=== PATIENT | female | born 1995 | race Caucasian/White ===

== ENCOUNTER 2017-12-13 17:49 | Inpatient (IN) | payer MEDICAID ==
[~2017-12-13] VITALS: Ht 5200 cm; Wt 100.0 kg
[~2017-12-13 17:49] MED LIST: OXYC-145 PO; PRED50TA PO; PREG50CA PO
[2017-12-13] MEDS ORDERED: normal saline 1000ML IV soln IVB ONE (17:55)
[2017-12-13 18:18] LABS: BASOPHILS # (AUTO) 0.1 X10'3 (0-0.2); BASOPHILS % (AUTO) 0.4 % (0-1); EOSINOPHILS # (AUTO) 0.2 X10'3 (0-0.9); EOSINOPHILS % (AUTO) 1.5 % (0-6); HEMATOCRIT 39.8 % (35.0-45.0); HEMOGLOBIN 12.9 g/dl (12.0-16.0); LYMPHOCYTES # (AUTO) 1.9 X10'3 (1.1-4.8); LYMPHOCYTES % (AUTO) 12.9 % (21-51); MEAN CORPUSCULAR HEMOGLOBIN 23.3 PG (27.0-31.0); MEAN CORPUSCULAR HGB CONC 32.2 % (33.0-36.5); MEAN CORPUSCULAR VOLUME 72.3 FL (78-98); MEAN PLATELET VOLUME 8.4 FL (7.4-10.4); MONOCYTES # (AUTO) 1.4 X10'3 (0-0.9); MONOCYTES % (AUTO) 9.7 % (2-12); NEUTROPHILS # (AUTO) 10.9 X10'3 (1.8-7.7); NEUTROPHILS % (AUTO) 75.5 % (42-75); PLATELET COUNT 318 X10'3 (140-440); RED BLOOD COUNT 5.51 X10'6 (4.20-5.60); RED CELL DISTRIBUTION WIDTH 12.1 % (11.5-14.5); WHITE BLOOD COUNT 14.5 X10'3 (4.5-11.0)
[2017-12-13 18:22] LABS: INR 1.1 INR; PARTIAL THROMBOPLASTIN TIME 23 SECONDS (22-32); PROTHROMBIN TIME 11.5 SECONDS (9.0-12.0)
[2017-12-13 18:35] LABS: ACETAMINOPHEN < 2.0 UG/ML (10-30); ALANINE AMINOTRANSFERASE 31 U/L (12-78); ALBUMIN 3.8 G/DL (3.4-5.0); ALKALINE PHOSPHATASE 93 IU/L (20-180); ANION GAP 12 (8-16); ASPARTATE AMINO TRANSFERASE 16 U/L (10-37); BILIRUBIN,TOTAL 0.3 MG/DL (0.1-1.0); BLOOD UREA NITROGEN 12 MG/DL (7-18); BUN/CREATININE RATIO 11.9 (6.6-38.0); CALCIUM 8.8 MG/DL (8.5-10.1); CHLORIDE 107 MMOL/L (99-107); CREATININE 1.01 MG/DL (0.40-0.90); ETHANOL < 0.010 GM/DL (0.0-0.010); GLUCOSE 95 MG/DL (70-104); POTASSIUM 3.8 MMOL/L (3.5-5.1); SODIUM 143 MMOL/L (135-145); TOTAL CARBON DIOXIDE 23.6 MMOL/L (24-32); TOTAL PROTEIN 7.5 G/DL (6.4-8.2); eGFR 70 ML/MIN
[2017-12-13 19:24] LABS: URINE HCG NEGATIVE (NEG)
[2017-12-13 19:34] LABS: URINE AMPHETAMINE SCREEN NEGATIVE (Neg); URINE BARBITUATE SCREEN NEGATIVE (Neg); URINE BENZODIAZEPINES SCREEN POSITIVE (Neg); URINE CANNABINOID SCREEN NEGATIVE (Neg); URINE COCAINE SCREEN NEGATIVE (Neg); URINE METHADONE SCREEN NEGATIVE (Neg); URINE OPIATE SCREEN NEGATIVE (Neg); URINE PHENCYCLIDINE SCREEN NEGATIVE (Neg)
[2017-12-13 19:36] LABS: CLARITY,URINE Clear (Clear); COLOR,URINE Yellow (Yellow); GLUCOSE, URINE Negative (Neg); KETONES,URINE Negative (Neg); LEUKOCYTE ESTERASE ,URINE Negative (Neg); NITRITES, URINE Negative (Neg); OCCULT BLOOD,URINE Negative (Neg); PH,URINE 5.5 (4.8-8.0); PROTEIN,URINE 30 mg/dl (Neg); UROBILINOGEN,URINE 0.2 E.U/dL (0.2-1.0)
[2017-12-13 19:39] LABS: UA COLLECTION TYPE FOLEY CATH
[2017-12-13] MEDS ORDERED: BACL20TA11 (20:08)
[2017-12-13] MEDS ORDERED: HYDR-3686 PO ×2 (20:08)
[2017-12-13] MEDS ORDERED: CLON-528 PO (20:08)
[2017-12-13] MEDS ORDERED: PHEN-887 PO (20:08)
[2017-12-13] MEDS ORDERED: LURA20TA PO (20:08)
[2017-12-13] MEDS ORDERED: ONDA8TAB9 PO (20:08)
[2017-12-13] MEDS ORDERED: QUET25TA PO (20:08)
[2017-12-13] MEDS ORDERED: GABA600T2 PO (20:08)
[2017-12-13] MEDS ORDERED: DULO-31 PO (20:08)
[2017-12-13] MEDS ORDERED: NORT50CA5 PO (20:08)
[2017-12-13] MEDS ORDERED: NORT25CA PO (20:08)
[2017-12-13 20:17] LABS: AMORPHOUS URATES 1+; BACTERIA,URINE FEW /HPF (Neg); MUCUS STRANDS MANY /LPF (Neg); RBC,URINE NONE SEEN /HPF (0-2); SQUAMOUS EPITHELIAL CELL,UR FEW /LPF (FEW); WBC,URINE 0-4 /HPF (0-4)
[2017-12-13 20:18] LABS: CAL OXALATE CRYSTALS 1+ /HPF (NEGATIVE)
[2017-12-13] MEDS ORDERED: temazepam 15mg capsule PO PRN (21:00)
[2017-12-13] MEDS ORDERED: HYDROmorphone inj. 0.5 MG/0.5 ML DISP.SYRIN IV PRN ×2 (22:05)
[2017-12-13] MEDS ORDERED: acetaminophen 650mg rectal suppository RC PRN (22:05)
[2017-12-13] MEDS ORDERED: diphenhydrAMINE 25mg capsule PO PRN (22:05)
[2017-12-13] MEDS ORDERED: glucagon, human recombinant 1mg kit SUBCUT PRN (22:05)
[2017-12-13] MEDS ORDERED: morphine 2 MG/ML inj. syringe IV PRN ×2 (22:05)
[2017-12-13] MEDS ORDERED: ondansetron/PF 4mg/2ml inj IV PRN (22:05)
[2017-12-13] MEDS ORDERED: diphenhydrAMINE 50 mg/ml inj IV PRN (22:05)
[2017-12-13] MEDS ORDERED: metoclopramide 5 mg/ml inj IV PRN (22:05)
[2017-12-13] MEDS ORDERED: bisacodyl 10mg suppository rectal RC PRN (22:05)
[2017-12-13] MEDS ORDERED: magnesium hydroxide 30ml (MOM) UD suspension PO PRN (22:05)
[2017-12-13] MEDS ORDERED: insulin Lispro (HumaLOG) vial - multi-dose SQ SCH (22:05)
[2017-12-13] MEDS ORDERED: HYDROcodone/acetaminophen 10/325mg tab PO PRN (22:05)
[2017-12-13] MEDS ORDERED: dextrose ORAL solution 15 GM/59 ML bottle PO PRN ×2 (22:05)
[2017-12-13] MEDS ORDERED: HYDROcodone/acetaminophen 5mg/325mg tablet PO PRN (22:05)
[2017-12-13] MEDS ORDERED: dextrose 50%-water 50ml dispensing syringe IV PRN ×2 (22:05)
[2017-12-13] MEDS ORDERED: acetaminophen 325mg tablet PO PRN (22:05)
[2017-12-13] MEDS ORDERED: MESSAGE TO PHARMACY PO ONE (22:05)
[2017-12-13] MEDS ORDERED: mag hydrox/Alum hydrox/simeth 30ml oral suspension PO PRN (22:05)
[2017-12-13 22:35] LABS: HEMOGLOBIN A1C 5.5 % (4.5-6.2)
[2017-12-13 22:44] LABS: MAGNESIUM 1.9 MG/DL (1.5-2.4); PHOSPHORUS 4.8 MG/DL (2.3-4.5)
[2017-12-13] MEDS: normal saline 1000ml 1,000 ML IV SCH (22:56)
[2017-12-13] MEDS: pantoprazole 40 MG vial IV SCH (22:56)
[2017-12-14] MEDS: phenazopyridine 100mg tablet PO SCH ×4 (03:15→19:30)
[2017-12-14 07:53] LABS: ALANINE AMINOTRANSFERASE 32 U/L (12-78); ALBUMIN 3.4 G/DL (3.4-5.0); ALBUMIN/GLOBULIN RATIO 0.9 (1.1-1.5); ALKALINE PHOSPHATASE 85 IU/L (20-180); ANION GAP 11 (8-16); ASPARTATE AMINO TRANSFERASE 32 U/L (10-37); BILIRUBIN,TOTAL 0.4 MG/DL (0.1-1.0); BLOOD UREA NITROGEN 11 MG/DL (7-18); BUN/CREATININE RATIO 12.9 (6.6-38.0); CALCIUM 8.9 MG/DL (8.5-10.1); CHLORIDE 108 MMOL/L (99-107); CHOL/HDL RATIO 4.8 (0.00-4.99); CHOLESTEROL 229 MG/DL (0-200); CREATININE 0.85 MG/DL (0.40-0.90); GLUCOSE 90 MG/DL (70-104); HDL CHOLESTEROL 48 MG/DL (35-60); LDL CHOLESTEROL 163 MG/DL (50-100); POTASSIUM 4.2 MMOL/L (3.5-5.1); SODIUM 140 MMOL/L (135-145); TOTAL CARBON DIOXIDE 21.1 MMOL/L (24-32); TRIGLYCERIDES 65 MG/DL (20-135); eGFR 85 ML/MIN
[2017-12-14] MEDS: pantoprazole 40 MG vial IV SCH (07:53)
[2017-12-14] MEDS ORDERED: docusate sod 100mg capsule PO SCH (08:00)
[2017-12-14] MEDS ORDERED: heparin, porcine 5000 units/ml vial SQ SCH (08:00)
[2017-12-14 08:36] LABS: BASOPHILS % (AUTO) 0.4 % (0-1); EOSINOPHILS # (AUTO) 0.3 X10'3 (0-0.9); EOSINOPHILS % (AUTO) 2.2 % (0-6); HEMATOCRIT 36.9 % (35.0-45.0); HEMOGLOBIN 12.3 g/dl (12.0-16.0); LYMPHOCYTES # (AUTO) 1.8 X10'3 (1.1-4.8); LYMPHOCYTES % (AUTO) 16.3 % (21-51); MEAN CORPUSCULAR HEMOGLOBIN 24.1 PG (27.0-31.0); MEAN CORPUSCULAR HGB CONC 33.4 % (33.0-36.5); MEAN CORPUSCULAR VOLUME 72.3 FL (78-98); MONOCYTES # (AUTO) 1.2 X10'3 (0-0.9); MONOCYTES % (AUTO) 10.2 % (2-12); NEUTROPHILS % (AUTO) 70.9 % (42-75); PLATELET COUNT 296 X10'3 (140-440); RED BLOOD COUNT 5.11 X10'6 (4.20-5.60); RED CELL DISTRIBUTION WIDTH 13.4 % (11.5-14.5); WHITE BLOOD COUNT 11.3 X10'3 (4.5-11.0)
[2017-12-14] MEDS: normal saline 1000ml 1,000 ML IV SCH (08:39)
[2017-12-14] MEDS ORDERED: LORazepam 2 mg/ml vial IM ONE (15:25)
[2017-12-14] MEDS ORDERED: diphenhydrAMINE 50 mg/ml inj IM ONE (15:25)
[2017-12-14] MEDS ORDERED: haloperidol lactate 5mg/ml inj IM ONE (15:25)
[2017-12-14] MEDS ORDERED: GABA600T2 PO ×3 (16:08)
[2017-12-14] MEDS ORDERED: QUET25TA PO ×2 (16:24)
[2017-12-14] MEDS ORDERED: SERT25TA PO (16:24)
[2017-12-14] MEDS ORDERED: OXYC5CAP19 PO (16:24)
[2017-12-14] MEDS ORDERED: HYDR-3686 PO (16:24)
[2017-12-14] MEDS ORDERED: LORA-512 PO (16:24)
[2017-12-14] MEDS ORDERED: magnesium hydroxide 30ml (MOM) UD suspension PO ONE (19:10)
[2017-12-14] MEDS: nortriptyline 25mg capsule PO SCH (19:32)
[2017-12-14] MEDS: duloxetine 30mg CAPSULE.DR PO SCH (19:32)
[2017-12-14] MEDS: oxyCODONE IR 5mg (immed. release) tablet PO PRN (19:34)
[2017-12-14] MEDS: lurasidone 20mg tablet PO SCH (21:35)
[2017-12-14] MEDS: QUEtiapine 25mg tablet PO SCH (21:36)
[2017-12-14] MEDS: gabapentin 300mg capsule PO SCH (21:36)
[2017-12-14] MEDS: hydrOXYzine 25 MG tablet PO PRN (22:06)
[2017-12-14] MEDS: ondansetron 4mg rapidly disintigrating tab PO PRN (22:47)
[2017-12-15] MEDS: phenazopyridine 100mg tablet PO SCH ×4 (01:17→23:42)
[2017-12-15] MEDS: oxyCODONE IR 5mg (immed. release) tablet PO PRN ×3 (01:18→20:45)
[2017-12-15] MEDS ORDERED: ketorolac tromethamine 15mg/ml inj. IM ONE (03:40)
[2017-12-15] MEDS ORDERED: ketorolac trometh inj. 60 MG/2 ML VIAL IM ONE (04:05)
[2017-12-15] MEDS ORDERED: pantoprazole 40mg Tablet.DR PO SCH (07:30)
[2017-12-15 07:44] LABS: ACETAMINOPHEN < 2.0 UG/ML (10-30)
[2017-12-15] MEDS ORDERED: gabapentin 300mg capsule PO SCH ×2 (08:00→12:30)
[2017-12-15] MEDS ORDERED: loratadine 10mg tablet PO SCH (08:00)
[2017-12-15] MEDS ORDERED: sertraline 25mg tablet PO SCH (08:00)
[2017-12-15] MEDS: QUEtiapine 25mg tablet PO SCH ×3 (08:14→20:44)
[2017-12-15] MEDS: duloxetine 30mg CAPSULE.DR PO SCH ×2 (08:14→20:44)
[2017-12-15] MEDS: clonazePAM 0.5mg tablet PO PRN ×2 (11:17→16:29)
[2017-12-15] MEDS: hydrOXYzine 25 MG tablet PO PRN ×2 (16:29→20:44)
[2017-12-15] MEDS ORDERED: nortriptyline 25mg capsule PO SCH (17:00)
[2017-12-15] MEDS: nortriptyline 25mg capsule PO SCH (17:51)
[2017-12-15 20:42] LABS: BASOPHILS % (AUTO) 0.5 % (0-1); EOSINOPHILS # (AUTO) 0.3 X10'3 (0-0.9); EOSINOPHILS % (AUTO) 3.5 % (0-6); HEMATOCRIT 34.9 % (35.0-45.0); HEMOGLOBIN 11.7 g/dl (12.0-16.0); LYMPHOCYTES # (AUTO) 2.5 X10'3 (1.1-4.8); LYMPHOCYTES % (AUTO) 26.2 % (21-51); MEAN CORPUSCULAR HEMOGLOBIN 23.9 PG (27.0-31.0); MEAN CORPUSCULAR HGB CONC 33.6 % (33.0-36.5); MEAN PLATELET VOLUME 7.7 FL (7.4-10.4); MONOCYTES # (AUTO) 1.4 X10'3 (0-0.9); MONOCYTES % (AUTO) 14.4 % (2-12); NEUTROPHILS # (AUTO) 5.3 X10'3 (1.8-7.7); NEUTROPHILS % (AUTO) 55.4 % (42-75); PLATELET COUNT 292 X10'3 (140-440); RED BLOOD COUNT 4.91 X10'6 (4.20-5.60); RED CELL DISTRIBUTION WIDTH 13.3 % (11.5-14.5); WHITE BLOOD COUNT 9.5 X10'3 (4.5-11.0)
[2017-12-15] MEDS: gabapentin 300mg capsule PO SCH (20:43)
[2017-12-15] MEDS: lurasidone 20mg tablet PO SCH (20:44)
[2017-12-15] MEDS: ondansetron 4mg rapidly disintigrating tab PO PRN (20:48)
[2017-12-16] MEDS: clonazePAM 0.5mg tablet PO PRN (03:14)
[2017-12-16] MEDS: oxyCODONE IR 5mg (immed. release) tablet PO PRN (03:15)
[2017-12-16] MEDS ORDERED: LORazepam 1 MG tablet PO ONE (06:10)
[2017-12-16 06:54] VITALS: BP 127/73
== END 2017-12-16 06:25 | DRG 812 ==
LOC: ER 17:50 → ED HOLD 22:03
PROVIDERS: ADMIT Family Medicine; ATTEND Family Medicine
DX: T43.012A Poisoning by tricyclic antidepressants, intentional self-harm, initial encounter (principal); Z68.41 Body mass index [BMI] 40.0-44.9, adult; I10 Essential (primary) hypertension; N30.10 Interstitial cystitis (chronic) without hematuria; T40.2X2A Poisoning by other opioids, intentional self-harm, initial encounter; T42.8X2A Poisoning by antiparkinsonism drugs and other central muscle-tone depressants, intentional self-harm, initial encounter; F32.9 Major depressive disorder, single episode, unspecified; E66.01 Morbid (severe) obesity due to excess calories; K21.9 Gastro-esophageal reflux disease without esophagitis; M79.7 Fibromyalgia; G89.4 Chronic pain syndrome; E11.9 Type 2 diabetes mellitus without complications; Z88.5 Allergy status to narcotic agent; Z79.52 Long term (current) use of systemic steroids; Z79.899 Other long term (current) drug therapy; Y92.091 Bathroom in other non-institutional residence as the place of occurrence of the external cause
CPT/HCPCS: 36415; 71045; 74176; 80053; 80061; 80305; 80320; 80329; 81001; 81025; 82948; 83036; 83735; 83880; 84100; 84443; 85025; 85610; 85730; 93005; 96360; 99291; C1758; C9113; J1644; J1885; J7030; Q0177

== ENCOUNTER 2019-03-03 21:40 | Emergency (ER) | payer OTHER, MEDICAID ==
[~2019-03-03] VITALS: Ht 165.1 cm; Wt 103.0 kg
[~2019-03-03 21:40] MED LIST changes: +CLON-528 PO; +DULO-31 PO; +GABA600T13 PO; +HYDR-3686 PO; +LORA-512 PO; +LURA20TA PO; +NORT25CA PO; +NORT50CA5 PO; +ONDA8TAB9 PO; -OXYC-145 PO; +OXYC5CAP19 PO; +PHEN-887 PO; -PRED50TA PO; -PREG50CA PO; +QUET25TA PO; +SERT25TA PO
[2019-03-03 21:57] VITALS: BP 150/81
[2019-03-03] MEDS ORDERED: proMETHazine 25mg tablet PO ONE (22:15)
[2019-03-03] MEDS ORDERED: ORPH100T2 PO (22:20)
[2019-03-03] MEDS ORDERED: OXYC-148 PO (22:20)
[2019-03-03] MEDS ORDERED: PHE12.5T PO (22:20)
== END 2019-03-03 22:35 | disposition home or self-care (01) ==
LOC: ER 21:41
DX: S13.4XXA Sprain of ligaments of cervical spine, initial encounter (principal); S29.019A Strain of muscle and tendon of unspecified wall of thorax, initial encounter; K21.9 Gastro-esophageal reflux disease without esophagitis; E11.9 Type 2 diabetes mellitus without complications; Z98.890 Other specified postprocedural states; Z88.5 Allergy status to narcotic agent; Z88.1 Allergy status to other antibiotic agents; Z88.8 Allergy status to other drugs, medicaments and biological substances; Z79.899 Other long term (current) drug therapy; V89.2XXA Person injured in unspecified motor-vehicle accident, traffic, initial encounter; Y93.89 Activity, other specified; Y92.410 Unspecified street and highway as the place of occurrence of the external cause; Y99.8 Other external cause status
CPT/HCPCS: 99283; Q0169

== ENCOUNTER 2019-03-04 21:20 | Emergency (ER) | payer OTHER, MEDICAID ==
[~2019-03-04] VITALS: Ht 165.1 cm; Wt 113.6 kg
[~2019-03-04 21:20] MED LIST changes: +ORPH100T2 PO; +OXYC-148 PO; +PHE12.5T PO
[2019-03-05] MEDS ORDERED: acetaminophen 325mg tablet PO ONE (00:05)
[2019-03-05] MEDS ORDERED: ondansetron 4mg rapidly disintigrating tab PO ONE (00:05)
[2019-03-05 01:37] VITALS: BP 144/82
== END 2019-03-05 01:40 | disposition home or self-care (01) ==
LOC: ER 21:21
DX: S13.4XXA Sprain of ligaments of cervical spine, initial encounter (principal); K21.9 Gastro-esophageal reflux disease without esophagitis; E11.9 Type 2 diabetes mellitus without complications; Z98.890 Other specified postprocedural states; Z88.5 Allergy status to narcotic agent; Z88.8 Allergy status to other drugs, medicaments and biological substances; Z88.1 Allergy status to other antibiotic agents; Z79.899 Other long term (current) drug therapy; V53.6XXA Passenger in pick-up truck or van injured in collision with car, pick-up truck or van in traffic accident, initial encounter; Y93.89 Activity, other specified; Y92.89 Other specified places as the place of occurrence of the external cause; Y99.8 Other external cause status
CPT/HCPCS: 70450; 99284

== ENCOUNTER 2022-02-18 22:17 | Emergency (ER) | payer OTHER, MEDICAID ==
[~2022-02-18] VITALS: Ht 167.6 cm; Wt 118.2 kg
[~2022-02-18 22:17] MED LIST changes: -PHE12.5T PO; +PROM12.512 PO
[2022-02-18 22:34] VITALS: BP 128/82
[2022-02-18 23:07] LABS: URINE HCG NEGATIVE (NEG)
[2022-02-18 23:08] LABS: CLARITY,URINE CLEAR (Clear); COLOR,URINE YELLOW (Yellow); GLUCOSE, URINE NEGATIVE (Neg); KETONES,URINE NEGATIVE (Neg); LEUKOCYTE ESTERASE ,URINE NEGATIVE (Neg); NITRITES, URINE NEGATIVE (Neg); OCCULT BLOOD,URINE NEGATIVE (Neg); PROTEIN,URINE TRACE mg/dl (Neg); UROBILINOGEN,URINE 0.2 E.U/dL (0.2-1.0)
[2022-02-18 23:13] LABS: UA COLLECTION TYPE CLN CATCH MIDSTREAM
[2022-02-18 23:16] LABS: BACTERIA,URINE NONE SEEN /HPF (Neg); MUCUS STRANDS NONE SEEN /LPF (Neg); RBC,URINE NONE SEEN /HPF (0-2); SQUAMOUS EPITHELIAL CELL,UR MODERATE /LPF (FEW); WBC,URINE 0-4 /HPF (0-4)
[2022-02-18 23:19] LABS: BASOPHILS % (AUTO) 0.2 % (0-1); EOSINOPHILS # (AUTO) 0.1 X10'3 (0-0.9); EOSINOPHILS % (AUTO) 0.6 % (0-6); HEMATOCRIT 40.5 % (35.0-45.0); HEMOGLOBIN 13.3 g/dl (12.0-16.0); LYMPHOCYTES # (AUTO) 1.1 X10'3 (1.1-4.8); LYMPHOCYTES % (AUTO) 13.6 % (21-51); MEAN CORPUSCULAR HEMOGLOBIN 27.6 PG (27.0-31.0); MEAN CORPUSCULAR HGB CONC 32.9 g/dL (33.0-36.5); MEAN PLATELET VOLUME 8.8 FL (7.4-10.4); MONOCYTES # (AUTO) 1.2 X10'3 (0-0.9); MONOCYTES % (AUTO) 14.6 % (2-12); NEUTROPHILS # (AUTO) 5.8 X10'3 (1.8-7.7); PLATELET COUNT 239 X10'3 (140-440); RED BLOOD COUNT 4.83 X10'6 (4.20-5.60); RED CELL DISTRIBUTION WIDTH 13.3 % (11.5-14.5); WHITE BLOOD COUNT 8.1 X10'3 (4.5-11.0)
[2022-02-18 23:29] LABS: ALANINE AMINOTRANSFERASE 23 U/L (12-78); ALBUMIN 3.5 G/DL (3.4-5.0); ALBUMIN/GLOBULIN RATIO 0.9 (1.1-1.5); ALKALINE PHOSPHATASE 84 IU/L (46-116); ANION GAP 6 (8-16); ASPARTATE AMINO TRANSFERASE 12 U/L (10-37); BILIRUBIN,TOTAL 0.2 MG/DL (0.1-1.0); BLOOD UREA NITROGEN 10 MG/DL (7-18); BUN/CREATININE RATIO 11.9 (6.6-38.0); CALCIUM 8.8 MG/DL (8.5-10.1); CHLORIDE 103 MMOL/L (99-107); CREATININE 0.84 MG/DL (0.40-0.90); GLUCOSE 99 MG/DL (70-104); LIPASE 79 U/L (73-393); POTASSIUM 3.6 MMOL/L (3.5-5.1); SODIUM 139 MMOL/L (135-145); TOTAL CARBON DIOXIDE 30.3 MMOL/L (24-32); TOTAL PROTEIN 7.5 G/DL (6.4-8.2); eGFR 83 ML/MIN
[2022-02-19] MEDS ORDERED: PANT-47 PO (02:08)
[2022-02-19] MEDS ORDERED: ONDA8TAB13 PO (02:08)
[2022-02-19] MEDS ORDERED: loperamide 2mg capsule PO ONE (02:10)
[2022-02-19] MEDS ORDERED: pantoprazole 40mg Tablet.DR PO ONE (02:10)
[2022-02-19] MEDS ORDERED: ondansetron 4mg rapidly disintigrating tab PO ONE (02:10)
== END 2022-02-19 02:24 | disposition home or self-care (01) ==
LOC: ER 22:18
DX: K52.89 Other specified noninfective gastroenteritis and colitis (principal); K21.9 Gastro-esophageal reflux disease without esophagitis; E11.9 Type 2 diabetes mellitus without complications; Z88.5 Allergy status to narcotic agent; Z88.1 Allergy status to other antibiotic agents; Z88.8 Allergy status to other drugs, medicaments and biological substances; Z88.6 Allergy status to analgesic agent
CPT/HCPCS: 36415; 80053; 81001; 81025; 83690; 85025; 99283

== ENCOUNTER 2023-02-24 17:22 | Emergency (ER) | payer MEDICAID, OTHER ==
[~2023-02-24] VITALS: Ht 165.1 cm; Wt 110.0 kg
[~2023-02-24 17:22] MED LIST changes: -LURA20TA PO; +LURA20TA8 PO; +ONDA8TAB13 PO; -ORPH100T2 PO; +ORPH100T4 PO; +PANT-47 PO
[2023-02-24 17:25] VITALS: BP 113/80
--- NOTE | 2023-02-24 17:53 | NUR ---
MELOXICAM ALLERGY IS SEVERE, PT HAS ANAPHYLAXIS WHEN CONSUMED
[2023-02-24] MEDS ORDERED: CLE150C PO (18:12)
[2023-02-24] MEDS ORDERED: clindamycin 150mg capsule PO ONE (18:15)
== END 2023-02-24 18:25 | disposition home or self-care (01) ==
LOC: ER 17:22
DX: O91.113 Abscess of breast associated with pregnancy, third trimester (principal); Z3A.31 31 weeks gestation of pregnancy; K21.9 Gastro-esophageal reflux disease without esophagitis; E11.9 Type 2 diabetes mellitus without complications; Z88.5 Allergy status to narcotic agent; Z88.1 Allergy status to other antibiotic agents
CPT/HCPCS: 10060; 99283

== ENCOUNTER 2023-02-27 04:35 | Emergency (ER) | payer MEDICAID ==
[~2023-02-27] VITALS: Ht 165.1 cm; Wt 110.5 kg
[~2023-02-27 04:35] MED LIST changes: +CLE150C PO
[2023-02-27 05:00] VITALS: BP 115/69
== END 2023-02-27 09:03 | disposition left against medical advice (07) ==
LOC: ER 04:36
DX: N61.1 Abscess of the breast and nipple (principal); Z53.21 Procedure and treatment not carried out due to patient leaving prior to being seen by health care provider
CPT/HCPCS: 99281

== ENCOUNTER 2023-03-09 17:18 | Outpatient (CLI) | payer MEDICAID ==
[~2023-03-09 17:18] MED LIST changes: -CLE150C PO
== END 2023-03-09 23:59 | disposition home or self-care (01) ==
LOC: LAB SPEC 17:18
PROVIDERS: ATTEND Surgery
DX: N61.0 Mastitis without abscess (principal)
CPT/HCPCS: 87070; 87077; 87186

== ENCOUNTER 2024-10-16 16:12 | Emergency (ER) | payer MEDICAID ==
[~2024-10-16] VITALS: Ht 167.6 cm; Wt 97.7 kg
[~2024-10-16 16:12] MED LIST changes: -CLON-528 PO; +CLON-850 PO; +GABA-1405 PO; -GABA600T13 PO; +ONDA-245 PO; -ONDA8TAB13 PO; -OXYC5CAP19 PO; +OXYC5CAP22 PO
[2024-10-16 16:51] VITALS: BP 116/71; PULSE 101; RESP 16; TEMP 98.2; O2SAT 99
[2024-10-16 17:26] LABS: BASOPHILS % (AUTO) 0.5 % (0-1); EOSINOPHILS # (AUTO) 0.5 X10'3 (0-0.9); EOSINOPHILS % (AUTO) 4.8 % (0-6); HEMATOCRIT 38.7 % (35.0-45.0); HEMOGLOBIN 12.9 g/dl (12.0-16.0); LYMPHOCYTES # (AUTO) 1.9 X10'3 (1.1-4.8); LYMPHOCYTES % (AUTO) 18.9 % (21-51); MEAN CORPUSCULAR HEMOGLOBIN 28.2 PG (27.0-31.0); MEAN CORPUSCULAR HGB CONC 33.3 g/dL (33.0-36.5); MEAN CORPUSCULAR VOLUME 84.6 FL (78-98); MEAN PLATELET VOLUME 8.4 FL (7.4-10.4); MONOCYTES # (AUTO) 1.2 X10'3 (0-0.9); MONOCYTES % (AUTO) 12.1 % (2-12); NEUTROPHILS # (AUTO) 6.6 X10'3 (1.8-7.7); NEUTROPHILS % (AUTO) 63.7 % (42-75); PLATELET COUNT 273 X10'3 (140-440); RED BLOOD COUNT 4.58 X10'6 (4.20-5.60); RED CELL DISTRIBUTION WIDTH 14.2 % (11.5-14.5); WHITE BLOOD COUNT 10.3 X10'3 (4.5-11.0)
[2024-10-16 17:46] LABS: ALANINE AMINOTRANSFERASE 25 U/L (12-78); ALBUMIN 3.4 G/DL (3.4-5.0); ALBUMIN/GLOBULIN RATIO 0.9 (1.1-1.5); ALKALINE PHOSPHATASE 69 IU/L (46-116); ANION GAP 9 (8-16); ASPARTATE AMINO TRANSFERASE 12 U/L (10-37); BILIRUBIN,TOTAL 0.2 MG/DL (0.1-1.0); BLOOD UREA NITROGEN 12 MG/DL (7-18); BUN/CREATININE RATIO 18.2 (10.0-20.0); CHLORIDE 104 MMOL/L (99-107); CREATININE 0.66 MG/DL (0.40-0.90); GLUCOSE 100 MG/DL (70-104); POTASSIUM 3.9 MMOL/L (3.5-5.1); SODIUM 137 MMOL/L (135-145); TOTAL CARBON DIOXIDE 24.1 MMOL/L (24-32); TOTAL PROTEIN 7.4 G/DL (6.4-8.2); eCRCL 115 ML/MIN; eGFR > 90 ML/MIN
[2024-10-16 18:09] LABS: BETA HCG,QUANTITATIVE 37413 mIU/ml
[2024-10-16 18:33] LABS: BILIRUBIN,URINE NEGATIVE (Neg); CLARITY,URINE SLIGHTLY CLOUDY (Clear); COLOR,URINE YELLOW (Yellow); GLUCOSE, URINE NEGATIVE (Neg); KETONES,URINE NEGATIVE (Neg); LEUKOCYTE ESTERASE ,URINE NEGATIVE (Neg); NITRITES, URINE NEGATIVE (Neg); OCCULT BLOOD,URINE LARGE (Neg); PROTEIN,URINE 30 mg/dl (Neg); UROBILINOGEN,URINE 0.2 E.U/dL (0.2-1.0)
[2024-10-16 18:38] LABS: UA COLLECTION TYPE CLN CATCH MIDSTREAM
[2024-10-16 18:40] LABS: BACTERIA,URINE 2+ /HPF (Neg); SQUAMOUS EPITHELIAL CELL,UR FEW /LPF (FEW)
[2024-10-16 18:41] LABS: AMORPHOUS URATES 1+
== END 2024-10-16 19:22 | disposition home or self-care (01) ==
LOC: ER 16:13
DX: O20.9 Hemorrhage in early pregnancy, unspecified (principal); Z3A.01 Less than 8 weeks gestation of pregnancy; K21.9 Gastro-esophageal reflux disease without esophagitis; M79.7 Fibromyalgia; O24.111 Pre-existing type 2 diabetes mellitus, in pregnancy, first trimester; Z88.5 Allergy status to narcotic agent; Z88.1 Allergy status to other antibiotic agents; Z88.8 Allergy status to other drugs, medicaments and biological substances; Z79.899 Other long term (current) drug therapy
CPT/HCPCS: 36415; 76801; 80053; 81001; 84702; 85025; 86900; 86901; 87088; 99284